=== PATIENT | female | born 1955 | race Caucasian/White ===

== ENCOUNTER 2016-09-06 08:08 | Day surgery (SDC) | payer MEDICARE, OTHER ==
--- NOTE | ~2016-09-06 | EGD ---
EGD REPORT [facility] [address] [id number] NAME: BRUCE ISAAC : 53 STATUS : [place] [facility] [place] PAT#: [id number] AGE: 61 ADM/REG DATE : 09/06/16 MR#: [id number] REPORT SERV DATE: 09/06/16 DICTATED BY: YVONNE TEMPLE DATE: 09/06/16 REPORT STATUS : Draft TRANSCRIBED BY: [facility] DATE: 09/06/16 [facility] Patient Name: Bruce Isaac Date of : 1955 Attending MD: YVONNE TEMPLE MD Procedure Date No Time: 09/06/2016 Procedure: Colonoscopy Indications: Heme positive stool Referring MD: KACEY SIDDIQUI Medicines: Propofol per Anesthesia Complications: No immediate complications. Procedure: Pre-Anesthesia Assessment: - ASA Grade Assessment: III - A patient with severe systemic disease. After I obtained informed consent, the scope was passed under direct vision. Throughout the procedure, the patient's blood pressure, pulse, and oxygen saturations were monitored continuously. The CF [id number] was introduced through the anus and advanced to the terminal ileum. The colonoscopy was performed without difficulty. The patient tolerated the procedure well. The quality of the bowel preparation was fair. Findings: The perianal and digital rectal examinations were normal. The terminal ileum appeared normal. A moderate amount of semi-liquid stool was found in the entire colon, interfering with visualization. Lavage of the area was performed using copious amounts of sterile water, resulting in incomplete clearance with fair visualization. Diffuse melanosis was found in the entire colon. Non-bleeding internal hemorrhoids were found during retroflexion and were mild, small and Grade I (internal hemorrhoids that do not prolapse). Impression: - The examined portion of the ileum was normal. - Stool in the entire examined colon. - Melanosis in the colon. - Non-bleeding internal hemorrhoids. Recommendation: - Patient has a contact number available for emergencies. The signs and symptoms of potential delayed complications were discussed with the patient. Return to normal activities tomorrow. Written discharge instructions were provided to the patient. - Return to previous diet. EGD REPORT [address] [address] NAME: BRUCE ISAAC : [birth year] STATUS : [place] [facility] [place] PAT#: [id number] AGE: 61 ADM/REG DATE : 09/06/16 MR#: [id number] REPORT SERV DATE: 09/06/16 DICTATED BY: YVONNE TEMPLE DATE: 09/06/16 REPORT STATUS : Draft TRANSCRIBED BY: [employer] DATE: 09/06/16 - Continue present medications. - Repeat colonoscopy in 10 years for screening purposes. - Return to my office as previously scheduled. - Discharge patient to home. Procedure Code(s): --- Professional --- 19460, Colonoscopy, flexible, proximal to splenic flexure; diagnostic, with or without collection of specimen(s) by brushing or washing, with or without colon decompression (separate procedure) Diagnosis Code(s): --- Professional --- K64.0, First degree hemorrhoids K63.89, Other specified diseases of intestine R19.5, Other fecal abnormalities CPT copyright 2013 [employer]. All rights reserved. The codes documented in this report are preliminary and upon break out man review may be revised to meet current compliance requirements. Yvonne Temple MD YVONNE TEMPLE MD 09/06/2016 2:34 PM This report has been signed electronically. Number of Addenda: 0 Note Initiated On: 09/06/2016 1:32 PM Scope Withdrawal Time 0 hours 13 minutes 7 seconds [address] [id number]
[~2016-09-06 08:08] MED LIST: A; ACCUNEB INH; CELEXA10 PO; CLARIT10 PO; DEPAKOT500 PO; DEPAKOTE 125 M125 MG PO; FLONASE NAS; IBU400 PO; LOFIB160 PO; MINERALS; MULTIVITAMI1 PO; NASACORTAQ NAS; OS500+D PO; PEP20 PO; SENTAB PO; SYN.025B PO; VIT; VITAMIN D400 UNI1 PO; Z PACK; ZYP5 PO; [UNRECOGNIZED DRUG - OTHER] PO; [UNRECOGNIZED DRUG - OTHER] TOP
== END 2016-09-06 23:59 | disposition home or self-care (01) ==
LOC: DMU 08:08
PROVIDERS: Internal Medicine Gastroenterology
PROC: 0DJD8ZZ Inspection of Lower Intestinal Tract, Via Natural or Artificial Opening Endoscopic (ICD-10-PCS; principal; 2016-09-06 09:30)
DX: K64.8 Other hemorrhoids (principal); K63.89 Other specified diseases of intestine; R19.5 Other fecal abnormalities; D64.9 Anemia, unspecified; E87.1 Hypo-osmolality and hyponatremia; E03.9 Hypothyroidism, unspecified; F95.2 Tourette's disorder; L30.9 Dermatitis, unspecified; B35.4 Tinea corporis; K80.20 Calculus of gallbladder without cholecystitis without obstruction; M06.9 Rheumatoid arthritis, unspecified; K21.9 Gastro-esophageal reflux disease without esophagitis; M79.1 Myalgia; M85.80 Other specified disorders of bone density and structure, unspecified site; J30.2 Other seasonal allergic rhinitis; E78.00 Pure hypercholesterolemia, unspecified; H91.90 Unspecified hearing loss, unspecified ear; R56.9 Unspecified convulsions; H26.9 Unspecified cataract; S06.890A Other specified intracranial injury without loss of consciousness, initial encounter; Z79.899 Other long term (current) drug therapy; Z79.51 Long term (current) use of inhaled steroids
CPT/HCPCS: J2250